=== PATIENT | male | born 1955 | race Caucasian/White ===

== ENCOUNTER 2020-09-22 02:05 | Outpatient (CLI) | payer MEDICARE, SELFPAY ==
[2020-09-22 14:10] LABS: TSH 3.59 uIU/mL (0.36-3.74)
== END 2020-09-22 02:25 ==
DX: E03.9 Hypothyroidism, unspecified (principal)
CPT/HCPCS: 36415; 84443

== ENCOUNTER 2021-03-30 11:47 | Outpatient (CLI) | payer MEDICARE, SELFPAY ==
--- OUTSIDE RECORDS SUMMARY | 2021-03-30 11:52 | XMS_ITS | Continuity of Care Document ---
:1955 Author Organization [facility] Address [address] [place] [address]- Care Team Providers Name Role Phone TOLL Primary Care Physician Encounter BVT Date(s): 11/13/20 - 11/17/[address] [address]- Encounter Diagnosis Acute diastolic CHF (congestive heart failure) (Discharge Diagnosis) - 11/14/20 COPD (chronic obstructive pulmonary disease) (Discharge Diagnosis) - 11/13/20 Diaphragmatic paresis. left (Discharge Diagnosis) - 11/13/20 Hypothyroidism (Discharge Diagnosis) - 11/13/20 Respiratory failure with hypoxia (Discharge Diagnosis) - 11/14/20 Obesity (Discharge Diagnosis) - 11/14/20 Alcohol use (Discharge Diagnosis) - 11/14/20 Pulmonary artery hypertension (Discharge Diagnosis) - 11/15/20 Discharge Disposition: Home with Home Health Care Attending Physician: KERRY GIRON Admitting Physician: KERRY GIRON Allergies, Adverse Reactions, Alerts No Known Allergies Assessment and Plan Extracted from: Title: Discharge Note Author: DELORES BEY Date: 11/17/20 Discharge Plan 1.??Acute diastolic CHF (congestive hear t failure)??I50.31 Diuresed during admission. Discharged on oral furosemide 20 mg yazmin y, and??oral potassium chloride 10 mEq daily. Referral to cardiology at[facility]??sent. Dose of furosemide may need to be adjust ed??based on his fluid status??in the outpatient setting. Recommend basic metabolic panel in 1 wee k??to reassess renal function and electrolytes, which are normal at discharge. ?? 2.??Pulmonary artery hypertension??I27. 21 ??Suspected diagnosis based on enlarged pulmonary arteries seen on??CT PE protocol,??and mild dilation of RV on echocardiogram. No evidence of pulmonary emboli. May be related to underlying COPD? Order for PFTs and referral to pulmonolo gy at [facility]??sent. Patient??requiring 2 L of oxygen with ex ertion at time of discharge.?? No oxygen requirement at rest.?? Home oxygen arranged. ?? 3.??Respiratory failure with hypoxia??J 96.91 4.??COPD (chronic obstructive pulmonary disease)??J44.9 ??Needs PFTs,??order??to [facility] sent. Started on Anoro Ellipta??during admissi on, prescription sent to his pharmacy. ?? 5.??Diaphragmatic paresis. left??J98.6 ??Longstanding per patient,??but may be contributing to??hypoxia with exertion? 6.??Hypothyroidism??E03.9 7.??Obesity??E66.9 8.??Alcohol use??Z72.89 ??Counseled to reduce use. ??No withdraw al during admission. ?? Orders: 2 LPM with exertion, 2 LPM with exertion , See Instructions, No oxygen needed while at rest., # 1 EA, 0 Refill(s), other reason (Rx), Instructions Replace Required Details, Supply furosemide 20 mg oral tablet, 20 mg = 1 tab(s), Oral, Daily, For heart failure, # 30 tab(s), 0 Refill(s), Pharmacy: [facility], 1 tab(s) Oral Daily,Instr:For heart failure potassium chloride 10 mEq oral tablet, extended release, 10 mEq = 1 tab(s), Oral, Daily, # 30 tab(s), 0 Refill(s), Pharmacy: [facility], 1 tab(s) Oral Daily Anoro Ellipta 62.5 mcg-25 mcg/inh inhal ation powder, 1 puff(s), INH, Daily, For COPD, # 1 EA, 0 Refill(s), Pharmacy: [facility], 1 puff(s) INH Daily,Instr:For COPD Discharge, 11/17/20 14:42:00 EDT, Home Health Discharge Activity, 11/17/20 14:42:00 E DT, As tolerated Discharge Activity, 11/17/20 14:42:00 E DT, If your weight increases by more than 2lb in 24 hours, take an extra dose of furosemide. If your weight increases again despite this, call Dr. Baker for advice. Discharge Activity, 11/17/20 14:42:00 E DT, Heart failure can cause fluid to build up in your body. To prevent this, continue taking the medication furosemide daily. Discharge Activity, 11/17/20 14:42:00 E DT, You were diagnosed with diastolic congestive heart failure. This means your heart muscle more stiff than it should be. The pumping strength of your heart is normal. Discharge Activity, 11/17/20 14:42:00 E DT, Discontinue alcohol use Discharge Activity, 11/17/20 14:42:00 E DT, At this time you need to wear oxygen, 2 liters/min by nasal cannula, when you walk or exert yourself. You don't need oxygen when you are still or resting. Discharge Activity, 11/17/20 14:42:00 E DT, I have referred you to cardiology at [facility]. I also referred you to pulmonology, and for pulmonary function tests, because you probably have high pressure in your pulmonary arteries. Discharge Diet., 11/17/20 14:42:00 EDT, Prudent AHA Diet Discontinue IV, 11/17/20 14:42:00 EDT, prior to discharge home SARS-CoV-2 (COVID-19) PCR (BD MAX), Jonathon opharyngeal Swab, Routine collect, 11/17/20 10:38:00 EDT, Stop date 11/17/20 10:43:00 EDT, Nurse collect, No, No, No, No, No, Not All Diagnoses This Visit Acute diastolic CHF (congestive heart fa ilure) Pulmonary artery hypertension Respiratory failure with hypoxia COPD (chronic obstructive pulmonary dis ease) Diaphragmatic paresis. left Hypothyroidism Obesity Alcohol use Patient Discharge Condition Stable, improved Discharge Disposition Home with??home health Outpatient referrals to cardiology??and pulmonology??sent Referral for outpatient PFTs sent Patient Education Heart Failure Medicines Heart Failure Exacerbation Pulmonary Hypertension How the Heart Works Heart Failure Eating Plan Form - Daily Weight Record Living With Heart Failure Follow Up With When Contact Information NAM Wood 11/21/2020 10:30 AM EDT [facility] [address] [id number] - [facility] (1) Additional Instructions: This is your fo llow up appointment after hospitalization @ the PCP office Pulmonology/[facility]/[place] Additional Instructions: Office will stephanie wood to schedule follow up. phone: ??[phone] [facility] [place] Additional Instructions: Service to call you and schedule in home appointment # [phone] Cardiology/[facility]/[place] Additional Instructions: Office will stephanie wood to schedule follow up # [phone] Functional Status 11/17/20 History of Fall in Last 3 Months [place] No Mobility Jaspal Slightly limited 11/17/20 Ambulatory Devices None 11/13/20 Level of Assistance - Self Care-Mobility No change fro m baseline Bathing ADL Index Independent (2) Dressing ADL Index Independent (2) Toileting ADL Index Independent (2) Transferring Bed or Chair ADL Index Independent (2) Continence ADL Index Independent (2) COVID-19 Screening None Medications 2 LPM with exertion 2 LPM with exertion, See Instructions, No oxygen needed while at rest., # 1 EA, 0 Refill(s), other reason (Rx), Instructions Replace Required Details, Supply Start Date: 11/17/20 Status: OrderedAlbuterol (Eqv-ProAir HFA) 90 mcg/inh inhalation aerosol 2 puff(s), INH, q4hr, PRN PRN wheezing Start Date: 11/13/20 Status: OrderedAllegra Allergy 180 mg, Oral, Daily, PRN PRN allergy symptoms, 0 Refill(s) Start Date: 01/30/17 Status: OrderedAnoro Ellipta 62.5 mcg-25 mcg/inh inhalation powder 1 puff(s), INH, Daily, For COPD, # 1 EA, 0 Refill(s), Pharmacy: [facility], 1 puff(s) INH Daily,Instr:For COPD Start Date: 11/17/20 Status: Orderedfurosemide 20 mg oral tablet 20 mg = 1 tab(s), Oral, Daily, For heart failure, # 30 tab(s), 0 Refill(s), Pharmacy: [facility], 1 tab(s) Oral Daily,Instr:For heart failure Start Date: 11/17/20 Status: Orderedibuprofen 600 mg oral tablet 600 mg = 1 tab(s), Oral, q6hr, PRN PRN Pain, 0 Refill(s) Start Date: 01/30/17 Status: Orderedlevothyroxine 25 mcg (0.025 mg) oral capsule 25 mcg = 1 cap(s), Oral, Daily Start Date: 11/13/20 Status: Orderedpotassium chloride 10 mEq oral tablet, extended release 10 mEq = 1 tab(s), Oral, Daily, # 30 tab(s), 0 Refill(s), Pharmacy: [facility], 1 tab(s)Oral Daily Start Date: 11/17/20 Status: Ordered Mental Status 11/17/20 Sensory Perception Jaspal No impairment 11/17/20 Level of Consciousness Alert Problem List Condition Effective Dates Status Health Status Informant Asthma(Confirmed) Active Bilateral inguinal hernia(Confirmed) Active COPD (chronic obstructive pulmonary Active disease)(Confirmed) Diaphragmatic paresis. left(Confirmed) Active Hx of depression(Confirmed) Active Hypothyroidism(Confirmed) Active Right knee pain(Confirmed) Active Marijuana use, episodic(Confirmed) Active Class 2 obesity in adult(Confirmed) Active Primary localized osteoarthritis of Active right knee(Confirmed) Recurrent left inguinal Active hernia(Confirmed) Seasonal allergies(Confirmed) Active Vitamin D insufficiency(Confirmed) Active Procedures Procedure Date Related Diagnosis Body Site Status Appendectomy 1964 Completed Repair of left inguinal hernia Completed Results Laboratory List Name Date Basic Metabolic Panel Standard (CP7 Standard) 11/17/20 Magnesium Level 11/17/20 Basic Metabolic Panel Standard (CP7 Standard) 11/16/20 Glucose POC 11/15/20 Automated Differential Standard 11/15/20 Basic Metabolic Panel Standard (CP7 Standard) 11/15/20 CBC w/Diff Standard 11/15/20 Automated Differential Standard 11/14/20 CBC w/Diff Standard 11/14/20 Comprehensive Metabolic Panel Standard (Chemistry Pane l Standard) 11/14/20 Pro-BNP (BNP (proBNP)) 11/14/20 Troponin-T 11/14/20 Most recent to oldest 1 2 3 [Reference Range]: NRBC Auto Pct [0.00-0.20 %] 0.00 % 0.00 % (11/15/20 6:18 AM) (11/14/20 7:14 AM) Creatinine [0.70-1.20 0.63 mg/dL 0.67 mg/dL 0.75 mg/dL mg/dL] *LOW* *LOW* (11/15/20 6:18 AM ) (11/17/20 6:25 AM) (11/16/20 6:30 AM) AGAP [10.0-18.0 mmol/L] 8.6 mmol/L 7.7 mmol/L 10.7 mmo l/L *LOW* *LOW* (11/15/20 6:18 AM ) (11/17/20 6:25 AM) (11/16/20 6:30 AM) Glucose Lvl [70-100 mg/dL] 92 mg/dL 95 mg/dL 90 mg /dL (11/17/20 6:25 AM) (11/16/20 6:30 AM) (11/15/20 6:1 8 AM) Hct [40.1-51.0 %] 53.1 % 52.7 % *HI* *HI* (11/15/20:18 AM) (11/14/20 7:14 AM) Hgb [13.7-17.5 gm/dL] 16.5 gm/dL 16.1 gm/dL (11/15/20:18 AM) (11/14/20 7:14 AM) Lymph Auto [15.0-45.0 %] 11.1 % 14.9 % *LOW* *LOW* (11/15/20:18 AM) (11/14/20 7:14 AM) Magnesium [1.60-2.60 mg/dL] 1.70 mg/dL (11/17/20 6:25 AM) MCH [25.6-32.2 pg] 31.5 pg 31.1 pg (11/15/20 6:18 AM) (11/14/20 7:14 AM) MCHC [32.3-36.5 gm/dL] 31.1 gm/dL 30.6 gm/dL *LOW* *LOW* (11/15/20:18 AM) (11/14/20 7:14 AM) MCV [79.0-92.2 fL] 101.5 fL 101.7 fL *HI* *HI* (11/15/20 6:18 AM) (11/14/20 7:14 AM) Mclean Auto [4.0-14.0 %] 13.9 % 12.6 % (11/15/20 6:18 AM) (11/14/20 7:14 AM) MPV [9.4-12.4 fL] 9.6 fL 9.8 fL (11/15/20 6:18 AM) (11/14/20 7:14 AM) Neutro Auto [50.0-75.0 %] 71.9 % 70.6 % (11/15/20 6:18 AM) (11/14/20 7:14 AM) Osmolality [268.0-291.0 267.2 mOsm/kg 268.2 mOsm/kg 276.0 mO sm/kg mOsm/kg] *LOW* (11/16/20 6:30 AM) (11/15/20 6:18 AM) (11/17/20 6:25 AM) Platelet [150-400 160 x10(3)/uL 161 x10(3)/uL x10(3)/uL] (11/15/20 6:18 AM) (11/14/20 7:14 AM) RBC [4.63-6.08 x10(6)/uL] 5.23 x10(6)/uL 5.18 x10(6)/uL (11/15/20 6:18 AM) (11/14/20 7:14 AM) Sodium Lvl [136-145 mmol/L] 133 mmol/L 134 mmol/L 138 mmol/L *LOW* *LOW* (11/15/20 6:18 AM ) (11/17/20 6:25 AM) (11/16/20 6:30 AM) Total Protein [6.6-8.7 7.0 gm/dL gm/dL] (11/14/20 7:14 AM) Albumin Lvl [3.50-5.20 3.60 gm/dL gm/dL] (11/14/20 7:14 AM) Alk Phos [40-130 IntUnit/L] 81 IntUnit/L (11/14/20 7:14 AM) ALT [0-41 IntUnit/L] 24 IntUnit/L (11/14/20 7:14 AM) AST [0-40 IntUnit/L] 27 IntUnit/L (11/14/20 7:14 AM) Basophil Auto [0.0-2.0 %] 1.1 % 0.9 % (11/15/20 6:18 AM) (11/14/20 7:14 AM) Bili Total [0.0-1.3 mg/dL] 1.0 mg/dL (11/14/20 7:14 AM) CO2 [22-29 mmol/L] 44 mmol/L 1 44 mmol/L 2 43 mmol/L 3 *CRIT* *CRIT* *CRIT* (11/17/20 6:25 AM) (11/16/20 6:30 AM) (11/15/20 6:1 8 AM) Eos Auto [0.0-8.0 %] 1.5 % 0.8 % (11/15/20 6:18 AM) (11/14/20 7:14 AM) WBC [4.2-9.1 x10(3)/uL] 6.1 x10(3)/uL 5.3 x10(3)/uL (11/15/20 6:18 AM) (11/14/20 7:14 AM) BUN [6-23 mg/dL] 16 mg/dL 13 mg/dL 15 mg/dL (11/17/20 6:25 AM) (11/16/20 6:30 AM) (11/15/20 6:1 8 AM) Calcium Lvl [8.6-10.2 8.8 mg/dL 8.5 mg/dL 8.9 mg/dL mg/dL] (11/17/20 6:25 AM) *LOW* (11/15/20 6:18 AM) (11/16/20 6:30 AM) Chloride [98-107 mmol/L] 84 mmol/L 86 mmol/L 89 mmol /L *LOW* *LOW* *LOW* (11/17/20 6:25 AM) (11/16/20 6:30 AM) (11/15/20 6:1 8 AM) Potassium Lvl [3.5-5.1 3.6 mmol/L 3.7 mmol/L 4.7 mmol/ L mmol/L] (11/17/20 6:25 AM) (11/16/20 6:30 AM) (11/15/20 6:1 8 AM) Troponin-T [0.000-0.029 <0.010 ng/mL ng/mL] (11/14/20 7:14 AM) Lymph Absolute [1.30-3.60 0.68 x10(3)/uL 0.79 x10(3)/uL x10(3)/uL] *LOW* *LOW* (11/15/20 6:18 AM) (11/14/20 7:14 AM) Mclean Absolute [0.30-0.80 0.85 x10(3)/uL 0.67 x10(3)/uL x10(3)/uL] *HI* (11/14/20 7:14 AM) (11/15/20 6:18 AM) Eos Absolute [0.04-0.36 0.09 x10(3)/uL 0.04 x10(3)/uL x10(3)/uL] (11/15/20 6:18 AM) (11/14/20 7:14 AM) NRBC Absolute [0.00-0.01 0.00 x10(3)/uL 0.00 x10(3)/uL x10(3)/uL] (11/15/20 6:18 AM) (11/14/20 7:14 AM) Neutro Absolute [1.78-5.38 4.40 x10(3)/uL 3.75 x10(3)/uL x10(3)/uL] (11/15/20 6:18 AM) (11/14/20 7:14 AM) RDW-CV [11.6-14.4 %] 12.5 % 12.8 % (11/15/20 6:18 AM) (11/14/20 7:14 AM) Glucose POC [70-100] 102 *HI* (11/15/20 1:27 PM) Pro-BNP [0.0-125.0 pg/mL] 1065.0 pg/mL *HI* (11/14/20 7:14 AM) GFR NonAfrican Gibraltarian 127 mL/min/1.73 m2 119 mL/min/1.73 m2 10 4 mL/min/1.73 m2 [>=60 mL/min/1.73 m2] (11/17/20 6:25 AM) (11/16/20 6:30 AM) ( 6:18 AM) Immature Gran % [0.00-2.30 0.50 % 0.20 % %] (11/15/20 6:18 AM) (11/14/20 7:14 AM) Immature Gran Absolute 0.03 x10(3)/uL 0.01 x10(3)/uL *NA* *NA* (11/15/20 6:18 AM) (11/14/20 7:14 AM) Basophil Absolute 0.07 x10(3)/uL 0.05 x10(3)/uL [0.00-0.10 x10(3)/uL] (11/15/20 6:18 AM) (11/14/20 7:14 AM) 1Result Comment: Critical result notified/readback to Alma Delia Lucas at PCU by Yasmeen Benitez at 11/17/2020 07:38:27 EDT.2Result Comment: Critical result notified/readback to Latoya Petit at 11/16/2020 07:43:44 EDT by [email or web address] Result Comment: Critical result notified/readback to Latoya Petit at U by Steffi at 11/15/2020 07:39Radiology Reports Exam Date Time Procedure Performing Provider Status 11/14/20 5:[address] PE Protocol Yasmeen Delaney; Auth (Verified) Notes:(CT PE Protocol) Reason For Exam: New hypoxia, Right heart strain, ro PE, ho COPDCT PE Protocol EXAMINATION: CT PE Protocol CLINICAL HISTORY: New hypoxia, Right heart strain, ro PE, ho COPD TECHNIQUE: Helical CT angiogram of the chest was performed after intravenous contrast administration of 95cc of Omnipaque 350. Thin-section reconstructions as well as coronal and sagittal MIP reformatted images were generated to aid in evaluation. COMPARISON: Chest radiograph 11/13/2020 0947 hours FINDINGS: Pulmonary arteries: Limited study due to decreased opacification of the pulmonary arteries (main pulmonary artery measures 215 Hounsfield units) secondary to contrast bolus timing. The main pulmonary artery is enlarged and measures 45 mm in diameter. No proximal pulmonary artery intraluminal filling defects. Other cardiovascular structures: Normal heart size. No aneurysm or stenosis. Coronary calcifications are present. Lungs and airways: There is compressive atelectasis of the left lower lobe secondary to marked elevation of the left hemidiaphragm and marked kyphotic curvature of the thoracic spine. Subtle air bronchograms are evident.1 Pleura and pericardium: No significant findings. Mediastinum and hilar structures: No lymphadenopathy or pneumomediastinum. Limited views of the upper abdomen: There is marked elevation of the left hemidiaphragm. The GE junction is normally positioned, however, the stomach takes an abrupt cephalad turn and is largely located within the left hemithorax. Additionally, loops of small and large bowel as well as the spleen and pancreas are located within the left hemithorax. No disruption of the diaphragm is identified to suggest hernia. Skeletal structures: Marked kyphosis of the visualized thoracic spine with bridging syndesmophytes along the anterior vertebral column, as well as calcification of the supraspinous ligament5. No fracture or suspicious osseous lesion. IMPRESSION: 1. Limited study due to limited opacification of the pulmonary arteries secondary to contrast bolus timing. 2. No large proximal pulmonary artery filling defects. 3. Increased diameter of the main pulmonary artery, which suggests pulmonary hypertension. 4. Marked elevation of the left hemidiaphragm, age indeterminant, possibly indicating phrenic nerve or diaphragmatic injury. Comparison with prior imaging is recommended. 5. Left basilar atelectasis, with subtle air bronchograms. Correlate for likelihood of infectious consolidation. Preliminary report signed by a [facility] Server Systems Administrator or Fellow: Allen Sung at 11/14/2020 5:32 PM I have personally reviewed the image(s) and the resident's interpretation and agree with the findings, Alvin Retana MD at 11/14/2020 5:54 PM Thank you for letting us participate in the care of this patient. For questions regarding this report, please contact the number below. Final Dictated: 11/14/2020 5:54 pm ALVIN RETANA Signed (Electronic Signature): 11/14/2020 5:54 pm Signed by: ALVIN RETANA Exam Date Time Procedure Performing Provider Status 11/14/20 8:50 AM US Echocardiogram Complete Sergio Markham (Verified) Notes:(US Echocardiogram Complete) Reason For Exam: chfUS Echocardiogram Complete [address], [address] (main) Transthoracic Echo Report Patient name: EDMOND FUENTES P : 1955 Age: 65Y Weight: 262.4 lb Height: 67.7 in BSA: 2.38 m2 [facility]#/Seq#: [id number] Inpt/Outpt: Inpatient Equipment: EPIQ CVx Referred by: EVITA ANDINO On Car Supervisor: Jarad Markham Interpreting physician: Khanh Rayo MD Examination date: 11/14/2020 Study quality:Technically difficult Comments: --------- Technical limitations - body habitus. ___2 cc of definity mixture was administered to enhance endocardial border definition. Echo Dimensions Ao Root Margie (2D): 0 cm IVS(D) (2D): 1.4 cm LVPW(D) (2D): 1.4 cm LV(D) (2D): 3.8 cm LV(S) (2D): 2.5 cm LA Vol Idx (2D): 47.2 ml/m2 Asc Ao Margie (2D): 4.2 cm LVOT (2D): 2.2 cm EF (2D): 71 % FS (2D): 34.2 % Diastology Findings -------- Left Ventricle There is overall normal LV systolic function.There are no wall motion abnormalities. The estimated LV ejection fraction is 70 %. LV chamber size is normal. There is mild concentric LV hypertrophy. Right Ventricle RV size is mildly dilated. The RV systolic function is normal. Left Atrium Left Atrium chamber is severely dilated. Right Atrium Right Atrium chamber is severely dilated. Aortic Valve Aortic valve is not well visualized. There is no aortic regurgitation. There is no aortic valve stenosis. Mitral Valve Mitral valve leaflets appear normal with normal excursion. There is mild mitral valve prolapse, anterior and posterior leaflets. There is moderate calcification of mitral valve posterior leaflet. There is no mitral regurgitation. There is no mitral stenosis. Tricuspid Valve Tricuspid valve is not well visualized. The estimated PA systolic pressure was not measured in the absence of an adequate TR jet. Pulmonary Valve Pulmonic valve is not well visualized. Pericardium The pericardium is normal. Aorta The ascending aorta is moderately dilated. Ascending Aortic Diameter: 4.2 cm. Impressions * There is overall normal LV systolic function. * There are no wall motion abnormalities. * The estimated LV ejection fraction is 70 %. * There is mild concentric LV hypertrophy. * RV size is mildly dilated. * Left Atrium chamber is severely dilated. * Right Atrium chamber is severely dilated. * The estimated PA systolic pressure was not measured in the absence of an adequate TR jet. * The ascending aorta is moderately dilated. * Ascending Aortic Diameter: 4.2 cm. * No significant valvular disease. * Technically difficult study. Electronically signed by: Khanh Rayo MD 11/14/2020 11:24 AM Final Dictated: 11/14/2020 11:24 am Khanh Rayo Signed (Electronic Signature): 11/14/2020 11:24 am Signed by: Khanh Rayo Technologist: Luly Markham Vital Signs Most recent to oldest 1 2 3 [Reference Range]: Temperature Temporal 36.3 DegC 36.6 DegC 37.1 DegC [36.3-37.8 DegC] (11/17/20 3:02 PM) (11/17/20 7:56 AM) (11/16/20 11 :22 PM) Temperature Temporal (DegF) 97.34 DegF 98.78 DegF 97.7 DegF (11/17/20 3:02 PM) (11/16/20 11:22 PM) (11/15/20 11 :33 PM) Peripheral Pulse Rate 92 bpm 100 bpm 99 bpm [60-100 bpm] (11/17/20 3:02 PM) (11/17/20 10:36 AM) (11/17/20 7: 56 AM) Heart Rate Monitored [60-100 91 bpm bpm] (11/16/20 8:09 AM) Respiratory Rate [14-20 18 br/min 18 br/min 22 br/mi n br/min] (11/17/20 3:02 PM) (11/17/20 10:36 AM) *HI* (11/17/20 7:56 AM ) Blood Pressure [90-140/60-90 126/70 mmHg 127/87 mmHg 97/ 69 mmHg mmHg] (11/17/20 3:02 PM) (11/17/20 7:56 AM) (11/17/20 12: 20 AM) Mean Arterial Pressure, Cuff 100 mmHg 78 mmHg 63 mmHg [65-100 mmHg] (11/17/20 7:56 AM) (11/17/20 12:20 AM) *LOW* (11/16/20 11:22 P M) Mean Arterial Pressure 104 mmHg 103 mmHg 102 mmHg Cuff-Monitor (11/14/20 3:45 PM) (11/14/20 3:32 AM) (11/13/20 11: 41 PM) BP Site Left arm Left arm Right arm (11/17/20 3:02 PM) (11/17/20 7:56 AM) (11/17/20 12: 20 AM) Patient Position BP Sitting Supine Supine (11/17/20 3:02 PM) (11/17/20 12:20 AM) (11/16/20 11 :22 PM) FIO2 21 % (11/13/20 10:16 PM) SpO2 [92-100 %] 92 % 91 % 93 % (11/17/20 3:02 PM) *LOW* (11/17/20 10:09 AM) (11/17/20 10:36 AM) Oxygen Activity Ongoing Initiate Ongoing (11/17/20 10:09 AM) (11/17/20 12:20 AM) (11/16/20 3 :22 PM) Height 172.720 cm (11/13/20 8:10 PM) Height/Length Dosing 172.720 cm (11/13/20 8:10 PM) Weight 114.6 kg 116.1 kg 119.0 kg (11/16/20 5:25 AM) (11/15/20 1:41 PM) (11/14/20 3:3 2 AM) Weight Measured (lbs) 255.42 lb 261.8 lb (11/15/20 1:41 PM) (11/14/20 3:32 AM) Weight Dosing 118.100 kg (11/13/20 8:10 PM) Scale Type Bed scale (11/13/20 8:10 PM) Body Mass Index 39.590 kg/m2 (11/13/20 8:10 PM) Social History Social History Type Response Smoking Status Former smoker, quit more odalys n 30 days ago; Tobacco use per day: quit 1987; entered on: 11/13/20 Sex Hospital Discharge Instructions Patient Euvgqydxv58/19/2021 16:08:30Heart Failure MedicinesHeart Failure Medicines Heart failure is a condition in which the heart cannot pump enough blood through the body. This can cause symptoms such as shortness of breath, fatigue, and confusion. There are two types of heart failure: ??? Heart failure with reduced ejection fraction. In this type, the heart muscle is weak. ??? Heart failure with preserved ejection fraction. In this type, the heart muscle does not fill with blood properly and may be stiff. There is no cure for heart failure. However, being treated with medicines and following your health care provider's instructions about a healthy lifestyle can help you stay active, avoid problems, and live longer. Talk to your health care provider about all medicines that you are taking, how often you should takethem, and what possible problems (side effects) they may cause. Talk with your health care provider if you have difficulty affording your medicines. What are some common medicines for heart failure? The medicines that are prescribed for you will depend on your symptoms, the type of heart failure you have, and the cause of your heart failure. In some cases, you may need to take more than one medicine. You will be prescribed the following medicines according to your type of heart failure: Heart failure with reduced ejection fraction ??? Beta-blockers. ??? Angiotensin-converting enzyme (LEE) inhibitors. ??? Angiotensin II receptor blockers (ARBs). ??? Angiotensin receptor neprilysin inhibitors (ARNIs). ??? Aldosterone antagonists. ??? Diuretics. ??? Digoxin. ??? Nitrates. Heart failure with preserved ejection fraction ??? Medicines to control blood pressure, including: ??? Beta-blockers. ??? Angiotensin-converting enzyme (LEE) inhibitors. ??? Angiotensin II receptor blockers (ARBs). ??? Diuretics. ??? Aldosterone antagonists. What should I know about beta-blockers? These medicines lower your blood pressure and slow your heart rate. This helps to lessen your heart's workload. ??? They can help to relieve chest pain (angina). ??? They can help to improve your heart's ability to pump. ??? They may cause asthma attacks and shortness of breath. ??? Because these medicines slow your heart rate, it is important not to overwork yourself while exercising. Talk to your health care provider about what your target heart rate should be while you exercise. ??? These medicines can hide the symptoms of low blood sugar (glucose), which is also called hypoglycemia. If you have diabetes, make sure to check your blood glucose carefully. If you have hypoglycemia, talk to your health care provider about adjusting your medicines. ??? Beta-blockers may make you feel dizzy or light-headed at first. Do not drive or use heavy machinery when you first start these medicines. Ask your health care provider when it is safe for you to drive. What should I know about LEE inhibitors or ARBs? These medicines help to widen arteries and veins. This action lowers your blood pressure and lessens the strain on your heart, making it easier for your heart to pump. ??? They can help to lessen the symptoms of heart failure. ??? ARBs are often used if a person cannot take LEE inhibitors. ??? LEE inhibitors may cause a dry cough. ??? In rare cases, LEE inhibitors and ARBs can cause swelling of the tongue or lips, other swelling,taste problems, and skin rashes. If these symptoms occur, stop taking the medicines and contact yourhealth care provider. ??? Do not take LEE inhibitors if you are or may become . These medicines can causehealth problems in an unborn baby. ??? These medicines may cause dizziness. You may need regular checkups and blood tests to monitor how they are working. What should I know about ARNIs? These medicines are a combination of an ARB and another medicine. They lower your blood pressure. ??? Side effects may include dry cough, dizziness, low blood pressure, and kidney problems. ??? Do not take ARNIs if you are already taking LEE inhibitors or ARBs. ??? You may notice increased urination when taking these medicines. ??? ARNIs can raise the amount of potassium in the blood. Your potassium levels will be monitored regularly by your health care provider. What should I know about aldosterone antagonists? They help the body to remove excess sodium through urination. This helps to lessen the amount ofblood that the heart needs to pump. ??? They can also help to lower blood pressure and improve the heart's ability to pump blood. ??? They may cause dizziness, diarrhea, coughing, or flu-like symptoms. ??? They should not be used if you have type 2 diabetes. ??? They can raise the amount of potassium in the blood. Your potassium levels will be monitored regularly by your health care provider. ??? These medicines can make men's breasts large and tender. What should I know about diuretics? Diuretics are medicines that help the body get rid of excess fluid through urination. They can also help lessen your heart's workload. ??? They help to lessen fluid buildup in the lungs, ankles, and feet. ??? They help to lower your blood pressure. ??? They can worsen problems with controlling urination (urinary incontinence). ??? They may cause dizziness, headaches, muscle cramps, and an upset stomach. ??? They can cause weak muscles, dry mouth, or confusion. It is important to drink plenty of fluids while taking these medicines, especially while exercising or on hot days. What should I know about digoxin? Digoxin helps the heart pump more blood efficiently. It also lowers your heart rate. ??? It can help ease heart failure symptoms and may be used if other medicines do not work. ??? It can also help with irregular heartbeat (arrhythmia). ??? It may cause stomach problems, fatigue, headache, drowsiness, or vision problems. What should I know about nitrates? Nitrates relax the blood vessels and increase oxygen and blood supply to the heart. They also lower the blood pressure. ??? They are usually taken to lessen chest pain. ??? They may cause headaches, flushing, or irregular heartbeat. Summary ??? A healthy lifestyle and treatment with medicine will relieve symptoms of heart failure. ??? In some cases, you may need to take more than one medicine. ??? It is important to talk to your health care provider about how often you should take your medicines. Do not skip a dose or change your dosage. ??? Talk to your health care provider about possible side effects of these medicines. This information is not intended to replace advice given to you by your health care provider. Make sure you discuss any questions you have with your health care provider. Document Released: 01/02/2018 Document Revised: 09/02/2018 Document Reviewed: 01/02/2018 [employer] Patient Education ?? 2020 [employer]. 11/17/2020 16:08:30Heart Failure ExacerbationHeart Failure Exacerbation Heart failure is a condition in which the heart does not fill up with enough blood, and therefore does not pump enough blood and oxygen to the body. When this happens, parts of the body do not get the blood and oxygen they need to function properly. This can cause symptoms such as breathing problems, fatigue, swelling, and confusion. Heart failure exacerbation refers to heart failure symptoms that get worse. The symptoms may get worse suddenly or develop slowly over time. Heart failure exacerbation is a serious medical problem thatshould be treated right away. What are the causes? A heart failure exacerbation can be triggered by: ??? Not taking your heart failure medicines correctly. ??? Infections. ??? Eating an unhealthy diet or a diet that is high in salt (sodium). ??? Drinking too much fluid. ??? Drinking alcohol. ??? Taking illegal drugs, such as cocaine or methamphetamine. ??? Not exercising. Other causes include: ??? Other heart conditions such as an irregular heartbeat (arrhythmia). ??? Anemia. ??? Other medical problems, such as kidney failure. Sometimes the cause of the exacerbation is not known. What are the signs or symptoms? When heart failure symptoms suddenly or slowly get worse, this may be a sign of heart failure exacerbation. Symptoms of heart failure include: ??? Breathing problems or shortness of breath. ??? Chronic coughing or wheezing. ??? Fatigue. ??? Nausea or lack of appetite. ??? Feeling light-headed. ??? Confusion or memory loss. ??? Increased heart rate or irregular heartbeat. ??? Buildup of fluid in the legs, ankles, feet, or abdomen. ??? Difficulty breathing when lying down. How is this diagnosed? This condition is diagnosed based on: ??? Your symptoms and medical history. ??? A physical exam. You may also have tests, including: ??? Electrocardiogram (ECG). This test measures the electrical activity of your heart. ??? Echocardiogram. This test uses sound waves to take a picture of your heart to see how well it works. ??? Blood tests. ??? Imaging tests, such as: ??? Chest X-ray. ??? MRI. ??? Ultrasound. ??? Stress test. This test examines how well your heart functions when you exercise. Your heart is monitored while you exercise on a treadmill or exercise bike. If you cannot exercise, medicines may beused to increase your heartbeat in place of exercise. ??? Cardiac catheterization. During this test, a thin, flexible tube (catheter) is inserted into a blood vessel and threaded up to your heart. This test allows your health care provider to check the arteries that lead to your heart (coronary arteries). ??? Right heart catheterization. During this test, the pressure in your heart is measured. How is this treated? This condition may be treated by: ??? Adjusting your heart medicines. ??? Maintaining a healthy lifestyle. This includes: ??? Eating a heart-healthy diet that is low in sodium. ??? Not using any products that contain nicotine or tobacco, such as cigarettes and e-cigarettes. ??? Regular exercise. ??? Monitoring your fluid intake. ??? Monitoring your weight and reporting changes to your health care provider. ??? Treating sleep apnea, if you have this condition. ??? Surgery. This may include: ??? Implanting a device that helps both sides of your heart contract at the same time (cardiac resynchronization therapy device). This can help with heart function and relieve heart failure symptoms. ??? Implanting a device that can correct heart rhythm problems (implantable cardioverter defibrillator). ??? Connecting a device to your heart to help it pump blood (ventricular assist device). ??? Heart transplant. Follow these instructions at home: Medicines ??? Take [id number] and prescription medicines only as told by your health care provider. ??? Do not stop taking your medicines or change the amount you take. If you are having problems or side effects from your medicines, talk to your health care provider. ??? If you are having difficulty paying for your medicines, contact a social media senior associate or your clinic. There are many programs to assist with medicine costs. ??? Talk to your health care provider before starting any new medicines or supplements. ??? Make sure your health care provider and pharmacist have a list of all the medicines you are taking. Eating and drinking ??? Avoid drinking alcohol. ??? Eat a heart-healthy diet as told by your health care provider. This includes: ??? Plenty of fruits and vegetables. ??? Lean proteins. ??? Low-fat dairy. ??? Whole grains. ??? Foods that are low in sodium. Activity ??? Exercise regularly as told by your health care provider. Balance exercise with rest. ??? Ask your health care provider what activities are safe for you. This includes sexual activity, exercise, and daily tasks at home or work. Lifestyle ??? Do not use any products that contain nicotine or tobacco, such as cigarettes and e-cigarettes. If you need help quitting, ask your health care provider. ??? Maintain a healthy weight. Ask your health care provider what weight is healthy for you. ??? Consider joining a patient support group. This can help with emotional problems you may have, such as stress and anxiety. General instructions ??? Talk to your health care provider about flu and pneumonia vaccines. ??? Keep a list of medicines that you are taking. This may help in emergency situations. ??? Keep all follow-up visits as told by your health care provider. This is important. Contact a health care provider if: ??? You have questions about your medicines or you miss a dose. ??? You feel anxious, depressed, or stressed. ??? You have swelling in your feet, ankles, legs, or abdomen. ??? You have shortness of breath during activity or exercise. ??? You have a cough. ??? You have a fever. ??? You have trouble sleeping. ??? You gain 2???3 lb (1???1.4 kg) in 24 hours or 5 lb (2.3 kg) in a week. Get help right away if: ??? You have chest pain. ??? You have shortness of breath while resting. ??? You have severe fatigue. ??? You are confused. ??? You have severe dizziness. ??? You have a rapid or irregular heartbeat. ??? You have nausea or you vomit. ??? You have a cough that is worse at night or you cannot lie flat. ??? You have a cough that will not go away. ??? You have severe depression or sadness. Summary ??? When heart failure symptoms get worse, it is called heart failure exacerbation. ??? Common causes of this condition include taking medicines incorrectly, infections, and drinking alcohol. ??? This condition may be treated by adjusting medicines, maintaining a healthy lifestyle, or surgery. ??? Do not stop taking your medicines or change the amount you take. If you are having problems or side effects from your medicines, talk to your health care provider. This information is not intended to replace advice given to you by your health care provider. Make sure you discuss any questions you have with your health care provider. Document Released: 12/30/2017 Document Revised: 07/31/2018 Document Reviewed: 12/30/2017 [employer] Patient Education ?? 2020 [employer]. 11/17/2020 16:08:30Pulmonary HypertensionPulmonary Hypertension Pulmonary hypertension is a long-term (chronic) condition in which there is high blood pressure in the arteries in the lungs (pulmonary arteries). This condition occurs when pulmonary arteries become narrow and tight, making it harder for blood to flow through the lungs. This in turn makes the heart work harder to pump blood through the lungs, making it harder for you to breathe. Over time, pulmonary hypertension can weaken and damage the heart muscle, specifically the right side of the heart. Pulmonary hypertension is a serious condition that can be life-threatening. What are the causes? This condition may be caused by different medical conditions. It can be categorized by cause into five groups: ??? Group 1: Pulmonary hypertension that is caused by abnormal growth of small blood vessels in the lungs (pulmonary arterial hypertension). The abnormal blood vessel growth may have no known cause, ntahan may be: ??? Passed from parent to child (hereditary). ??? Caused by another disease, such as a connective tissue disease (including lupus or scleroderma),congenital heart disease, liver disease, or HIV. ??? Caused by certain medicines or poisons (toxins). ??? Group 2: Pulmonary hypertension that is caused by weakness of the left chamber of the heart (left ventricle) or heart valve disease. ??? Group 3: Pulmonary hypertension that is caused by lung disease or low oxygen levels. Causes in this group include: ??? Emphysema or chronic obstructive pulmonary disease (COPD). ??? Untreated sleep apnea. ??? Pulmonary fibrosis. ??? Long-term exposure to high altitudes in certain people who may already be at higher risk for pulmonary hypertension. ??? Group 4: Pulmonary hypertension that is caused by blood clots in the lungs (pulmonary emboli). ??? Group 5: Other causes of pulmonary hypertension, such as sickle cell anemia, sarcoidosis, tumorspressing on the pulmonary arteries, and various other diseases. What are the signs or symptoms? Symptoms of this condition include: ??? Shortness of breath. You may notice shortness of breath with: ??? Activity, such as walking. ??? Minimal activity, such as getting dressed. ??? No activity, like when you are sitting still. ??? A cough. Sometimes, bloody mucus from the lungs may be coughed up (hemoptysis). ??? Tiredness and fatigue. ??? Dizziness, lightheadedness, or fainting, especially with physical activity. ??? Rapid heartbeat, or feeling your heart flutter or skip a beat (palpitations). ??? Veins in the neck getting larger. ??? Swelling of the lower legs, abdomen, or both. ??? Bluish color of the lips and fingertips. ??? Chest pain or tightness in the chest. ??? Abdominal pain, especially in the upper abdomen. How is this diagnosed? This condition may be diagnosed based on one or more of the following tests: ??? Chest X-ray. ??? Blood tests. ??? CT scan. ??? Pulmonary function test. This test measures how much air your lungs can hold. It also tests how well air moves in and out of your lungs. ??? 6-minute walk test. This tests how severe your condition is in relation to your activity levels. ??? Electrocardiogram (ECG). This test records the electrical impulses of the heart. ??? Echocardiogram. This test uses sound waves (ultrasound) to produce an image of the heart. ??? Cardiac catheterization. This is a procedure in which a thin tube (catheter) is passed into the pulmonary artery and used to test the pressure in your pulmonary artery and the right side of your heart. ??? Lung biopsy. This involves having a procedure to remove a small sample of lung tissue for testing. This may help determine an underlying cause of your pulmonary hypertension. How is this treated? There is no cure for this condition, but treatment can help to relieve symptoms and slow the progress of the condition. Treatment may include: ??? Cardiac rehabilitation. This is a treatment program that includes exercise training, education, and counseling to help you get stronger and return to an active lifestyle. ??? Oxygen therapy. ??? Medicines that: ??? Lower blood pressure. ??? Relax (dilate) the pulmonary blood vessels. ??? Help the heart beat more efficiently and pump more blood. ??? Help the body get rid of extra fluid (diuretics). ??? Thin the blood in order to prevent blood clots in the lungs. ??? Lung surgery to relieve pressure on the heart, for severe cases that do not respond to medical treatment. ??? Heart-lung transplant, or lung transplant. This may be done in very severe cases. Follow these instructions at home: Eating and drinking ??? Eat a healthy diet that includes plenty of fresh fruits and vegetables, whole grains, and beans. ??? Limit your salt (sodium) intake to less than 2,300 mg a day. Lifestyle ??? Do not use any products that contain nicotine or tobacco, such as cigarettes and e-cigarettes. If you need help quitting, ask your health care provider. ??? Avoid secondhand smoke. Activity ??? Get plenty of rest. ??? Exercise as directed. Talk with your health care provider about what type of exercise is safe for you. ??? Avoid hot tubs and saunas. ??? Avoid high altitudes. General instructions ??? Take kiwo-ogr-ejwkaed and prescription medicines only as told by your health care provider. Do not change or stop medicines without checking with your health care provider. ??? Stay up to date on your vaccines, especially yearly flu (influenza) and pneumonia vaccines. ??? If you are a woman of child-bearing age, avoid becoming . Talk with your health care provider about control. ??? Consider ways to get support for anxiety and stress of living with pulmonary hypertension. Talk with your health care provider about support groups and online resources. ??? Use oxygen therapy at home as directed. ??? Keep track of your weight. Weight gain could be a sign that your condition is getting worse. ??? Keep all follow-up visits as told by your health care provider. This is important. Contact a health care provider if: ??? Your cough gets worse. ??? You have more shortness of breath than usual, or you start to have trouble doing activities thatyou could do before. ??? You need to use medicines or oxygen more frequently or in higher dosages than usual. Get help right away if: ??? You have severe shortness of breath. ??? You have chest pain or pressure. ??? You cough up blood. ??? You have swelling of your feet or legs that gets worse. ??? You have rapid weight gain over a period of 1???2 days. ??? Your medicines or oxygen do not provide relief. Summary ??? Pulmonary hypertension is a chronic condition in which there is high blood pressure in the arteries in the lungs (pulmonary arteries). ??? Pulmonary hypertension is a serious condition that can be life-threatening. It can be caused by a variety of illnesses. ??? Treatment may involve taking medicines and using oxygen therapy. Severe cases may require surgery or a transplant. This information is not intended to replace advice given to you by your health care provider. Make sure you discuss any questions you have with your health care provider. Document Released: 06/14/2008 Document Revised: 07/31/2018 Document Reviewed: 11/11/2017 [employer] Patient Education ?? 2020 [employer]. 11/17/2020 16:08:30How the Heart WorksHow the Heart Works The heart is a hollow muscular organ. The heart's job is to pump blood through the entire body. Thisjob is important because blood carries oxygen and nutrients from the foods you eat to all the cells of your body. Blood also carries waste products away from your cells. What does the heart look like? The heart is made up of four chambers. The upper chambers are called the right atrium and left atrium, and the lower chambers are called the right ventricle and left ventricle. The heart has several valves that separate the upper and lower chambers from each other and that separate the lower chambers of the heart from pathways that lead away from the heart. The valves include: ??? The tricuspid valve. This valve separates the right atrium from the right ventricle. ??? The mitral valve. This valve separates the left atrium from the left ventricle. ??? The pulmonary valve. This valve separates the right ventricle from a pathway that leads to the lungs. ??? The aortic valve. This valve separates the left ventricle from a pathway that leads to the rest of the body. How does blood travel through the heart? Blood that has traveled through the body enters the heart at the right atrium. Then the blood travels in this sequence: 1. Blood is pumped from the right atrium into the right ventricle. 2. Blood is pumped out of the heart into the lungs, where it picks up oxygen. 3. Blood re-enters the heart at the left atrium. 4. Blood is pumped into the left ventricle. 5. Blood is pumped out of the heart to the rest of the body. How does the heart beat? The heart beats when all the chambers of the heart squeeze (contract). The process starts when bloodcollects in the upper chambers of the heart. Once the chambers are full, a group of cells called thesinoatrial node sends out an electrical signal that makes the upper chambers contract. When the chambers contract, they push the blood through the tricuspid and mitral valves into the lower chambers ofthe heart. Once the lower chambers have filled with blood, an electrical signal causes these chambers to contract. This pushes blood through the pulmonary and aortic valves and out of the heart. How does activity affect the heart? The heart beats faster and works harder when you are active. It beats more slowly and works less hard when you are resting. Your brain sends signals to the heart to meet the needs of your body. This information is not intended to replace advice given to you by your health care provider. Make sure you discuss any questions you have with your health care provider. Document Released: 07/23/2005 Document Revised: 12/13/2019 Document Reviewed: 07/23/2017 [employer] Patient Education ?? 2020 [employer] 11/17/2020 16:08:30Heart Failure Eating PlanHeart Failure Eating Plan Heart failure, also called congestive heart failure, occurs when your heart does not pump blood wellenough to meet your body's needs for oxygen-rich blood. Heart failure is a long-term (chronic) condition. Living with heart failure can be challenging. However, following your health care provider's instructions about a healthy lifestyle and working with a diet and payment specialist (dietitian) to choose the right foods may help to improve your symptoms. What are tips for following this plan? Reading food labels ??? Check food labels for the amount of sodium per serving. Choose foods that have less than 140 mg (milligrams) of sodium in each serving. ??? Check food labels for the number of calories per serving. This is important if you need to limityour daily calorie intake to lose weight. ??? Check food labels for the serving size. If you eat more than one serving, you will be eating more sodium and calories than what is listed on the label. ??? Look for foods that are labeled as sodium-free, very low sodium, or low sodium. ??? Foods labeled as reduced sodium or lightly salted may still have more sodium than what is recommended for you. Cooking ??? Avoid adding salt when cooking. Ask your health care provider or dietitian before using salt substitutes. ??? Season food with salt-free seasonings, spices, or herbs. Check the label of seasoning mixes to make sure they do not contain salt. ??? Cook with heart-healthy oils, such as olive, canola, soybean, or sunflower oil. ??? Do not barr foods. Cook foods using low-fat methods, such as baking, boiling, grilling, and broiling. ??? Limit unhealthy fats when cooking by: ??? Removing the skin from poultry, such as chicken. ??? Removing all visible fats from meats. ??? Skimming the fat off from stews, soups, and gravies before serving them. Meal planning ??? Limit your intake of: ??? Processed, canned, or pre-packaged foods. ??? Foods that are high in trans fat, such as fried foods. ??? Sweets, desserts, sugary drinks, and other foods with added sugar. ??? Full-fat dairy products, such as whole milk. ??? Eat a balanced diet that includes: ??? 4???5 servings of fruit each day and 4???5 servings of vegetables each day. At each meal, try tofill half of your plate with fruits and vegetables. ??? Up to 6???8 servings of whole grains each day. ??? Up to 2 servings of lean meat, poultry, or fish each day. One serving of meat is equal to 3 oz. This is about the same size as a deck of cards. ??? 2 servings of low-fat dairy each day. ??? Heart-healthy fats. Healthy fats called omega-3 fatty acids are found in foods such as flaxseed and cold-water fish like sardines, salmon, and mackerel. ??? Aim to eat 25???35 g (grams) of fiber a day. Foods that are high in fiber include apples, broccoli, carrots, beans, peas, and whole grains. ??? Do not add salt or condiments that contain salt (such as soy sauce) to foods before eating. ??? When eating at a restaurant, ask that your food be prepared with less salt or no salt, if possible. ??? Try to eat 2 or more vegetarian meals each week. ??? Eat more home-cooked food and eat less restaurant, buffet, and fast food. General information ??? Do not eat more than 2,300 mg of salt (sodium) a day. The amount of sodium that is recommended for you may be lower, depending on your condition. ??? Maintain a healthy body weight as directed. Ask your health care provider what a healthy weight is for you. ??? Check your weight every day. ??? Work with your health care provider and dietitian to make a plan that is right for you to lose weight or maintain your current weight. ??? Limit how much fluid you drink. Ask your health care provider or dietitian how much fluid you can have each day. ??? Limit or avoid alcohol as told by your health care provider or dietitian. Recommended foods The items listed may not be a complete list. Talk with your dietitian about what dietary choices arebest for you. Fruits All fresh, frozen, and canned fruits. Dried fruits, such as raisins, prunes, and cranberries. Vegetables All fresh vegetables. Vegetables that are frozen without sauce or added salt. Low-sodium or sodium-free canned vegetables. Grains Bread with less than 80 mg of sodium per slice. Whole-wheat pasta, quinoa, and brown rice. Oats and oatmeal. Barley. Millet. Grits and cream of wheat. Whole- grain and whole-wheat cold cereal. Meats and other protein foods Lean cuts of meat. Skinless chicken and turkey. Fish with high omega-3 fatty acids, such as salmon, sardines, and other cold-water fishes. Eggs. Dried beans, peas, and edamame. Unsalted nuts and nut butters. Dairy Low-fat or nonfat (skim) milk and dried milk. Rice milk, soy milk, and almond milk. Low-fat or nonfat yogurt. Small amounts of reduced-sodium block cheese. Low-sodium cottage cheese. Fats and oils Morse, canola, soybean, flaxseed, or sunflower oil. Avocado. Sweets and desserts Apple sauce. Granola bars. Sugar-free pudding and gelatin. Frozen fruit bars. Seasoning and other foods Fresh and dried herbs. Lemon or koi juice. Vinegar. Low-sodium ketchup. Salt- free marinades, salad dressings, sauces, and seasonings. The items listed above may not be a complete list of foods and beverages you can eat. Contact a dietitian for more information. Foods to avoid The items listed may not be a complete list. Talk with your dietitian about what dietary choices arebest for you. Fruits Fruits that are dried with sodium-containing preservatives. Vegetables Canned vegetables. Frozen vegetables with sauce or seasonings. Creamed vegetables. [place] fries. Onion rings. Pickled vegetables and sauerkraut. Grains Bread with more than 80 mg of sodium per slice. Hot or cold cereal with more than 140 mg sodium per serving. Salted pretzels and crackers. Pre-packaged breadcrumbs. Bagels, croissants, and biscuits. Meats and other protein foods Ribs and chicken wings. Matos, ham, pepperoni, bologna, salami, and packaged luncheon meats. Hot dogs, bratwurst, and sausage. Canned meat. Smoked meat and fish. Salted nuts and seeds. Dairy Whole milk, [id number], and cream. Buttermilk. Processed cheese, cheese spreads, and cheese curds. Regular cottage cheese. Feta cheese. Shredded cheese. String cheese. Fats and oils Butter, lard, shortening, ghee, and matos fat. Canned and packaged gravies. Seasoning and other foods Onion salt, garlic salt, table salt, and sea salt. Marinades. Regular salad dressings. Relishes, pickles, and olives. Meat flavorings and tenderizers, and bouillon cubes. Horseradish, ketchup, and mustard. Worcestershire sauce. Teriyaki sauce, soy sauce (including reduced sodium). Hot sauce and Tabasco sauce. Steak sauce, fish sauce, oyster sauce, and cocktail sauce. Taco seasonings. Barbecue sauce. Tartar sauce. The items listed above may not be a complete list of foods and beverages you should avoid. Contact adietitian for more information. Summary ??? A heart failure eating plan includes changes that limit your intake of sodium and unhealthy fat,and it may help you lose weight or maintain a healthy weight. Your health care provider may also recommend limiting how much fluid you drink. ??? Most people with heart failure should eat no more than 2,300 mg of salt (sodium) a day. The amount of sodium that is recommended for you may be lower, depending on your condition. ??? Contact your health care provider or dietitian before making any major changes to your diet. This information is not intended to replace advice given to you by your health care provider. Make sure you discuss any questions you have with your health care provider. Document Released: 01/02/2018 Document Revised: 10/14/2019 Document Reviewed: 01/02/2018 [employer] Patient Education ?? 2019 [employer] 11/17/2020 16:08:30Form - Daily Weight RecordDaily Weight Record It is important to weigh yourself daily. To do this: ??? Make sure you use a reliable scale. Use the same scale each day. ??? Keep this daily weight chart near your scale. ??? Weigh yourself each morning at the same time. ??? Before weighing yourself: ??? Take off your shoes. ??? Make sure you are wearing the same amount of clothing each day. ??? Write down your weight in the spaces on the form. ??? Compare today's weight to yesterday's weight. ??? Bring this form with you to your follow-up visits with your health care provider. Call your health care provider if you have concerns about your weight, including rapid weight gain or loss. Date: Weight: Date: Weight: Date: Weight: Date: Weight: Date: Weight: Date: Weight: Date: Weight: Date: Weight: Date: Weight: Date: Weight: Date: Weight: Date: Weight: Date: Weight: Date: Weight: Date: Weight: Date: Weight: Date: Weight: Date: Weight: Date: Weight: Date: Weight: Date: Weight: Date: Weight: Date: Weight: Date: Weight: Date: Weight: Date: Weight: Date: Weight: Date: Weight: Date: Weight: Date: Weight: Date: Weight: Date: Weight: Date: Weight: Date: Weight: Date: Weight: Date: Weight: Date: Weight: Date: Weight: Date: Weight: Date: Weight: Date: Weight: Date: Weight: Date: Weight: Date: Weight: Date: Weight: Date: Weight: Date: Weight: Date: Weight: Date: Weight: Date: Weight: This information is not intended to replace advice given to you by your health care provider. Make sure you discuss any questions you have with your health care provider. Document Released: 10/30/2007 Document Revised: 08/17/2018 Document Reviewed: 08/17/2018 [employer] Patient Education ?? 2020 [employer] 11/17/2020 14:27:11Living With Heart FailureLiving With Heart Failure Heart failure is a long-term (chronic) condition in which the heart cannot pump enough blood throughthe body. When this happens, parts of the body do not get the blood and oxygen they need. There is no cure for heart failure at this time, so it is important for you to take good care of yourself and follow the treatment plan set by your health care provider. If you are living with heart failure, there are ways to help you manage the disease. Follow these instructions at home: Living with heart failure requires you to make changes in your life. Your health care team will teach you about the changes you need to make in order to relieve your symptoms and lower your risk of going to the hospital. Follow the treatment plan as set by your health care provider. Medicines Medicines are important in reducing your heart's workload, slowing the progression of heart failure,and improving your symptoms. ??? Take [id number] and prescription medicines only as told by your health care provider. ??? Do not stop taking your medicine unless your health care provider tells you to do that. ??? Do not skip any dose of your medicine. ??? Refill prescriptions before you run out of medicine. You need your medicines every day. Eating and drinking ??? Eat heart-healthy foods. Talk with a dietitian to make an eating plan that is right for you. ??? If directed by your health care provider: ??? Limit salt (sodium). Lowering your sodium intake may reduce symptoms of heart failure. Ask a dietitian to recommend heart-healthy seasonings. ??? Limit your fluid intake. Fluid restriction may reduce symptoms of heart failure. ??? Use low-fat cooking methods instead of frying. Low-fat methods include roasting, grilling, broiling, baking, poaching, steaming, and stir-frying. ??? Choose foods that contain no trans fat and are low in saturated fat and cholesterol. Healthy choices include fresh or frozen fruits and vegetables, fish, lean meats, legumes, fat-free or low-fat dairy products, and whole-grain or high-fiber foods. ??? Limit alcohol intake to no more than 1 drink a day for non women and 2 drinks a day for men. One drink equals 12 oz of beer, 5 oz of wine, or 1?? oz of hard liquor. ??? Drinking more than that is harmful to your heart. Tell your health care provider if you drink alcohol several times a week. ??? Talk with your health care provider about whether any level of alcohol use is safe for you. Activity ??? Ask your health care provider about attending cardiac rehabilitation. These programs include aerobic physical activity, which provides many benefits for your heart. ??? If no cardiac rehabilitation program is available, ask your health care provider what aerobic exercises are safe for you to do. Lifestyle Make the lifestyle changes recommended by your health care provider. In general: ??? Lose weight if your health care provider tells you to do that. Weight loss may reduce symptoms of heart failure. ??? Do not use any products that contain nicotine or tobacco, such as cigarettes or e-cigarettes. Ifyou need help quitting, ask your health care provider. ??? Do not use street (illegal) drugs. ??? Return to your normal activities as told by your health care provider. Ask your health care provider what activities are safe for you. General instructions ??? Make sure you weigh yourself every day to track your weight. Rapid weight gain may indicate an increase in fluid in your body and may increase the workload of your heart. ??? Weigh yourself every morning. Do this after you urinate but before you eat breakfast. ??? Wear the same type of clothing, without shoes, each time you weigh yourself. ??? Weigh yourself on the same scale and in the same spot each time. ??? Living with chronic heart failure often leads to emotions such as fear, stress, anxiety, and depression. If you feel any of these emotions and need help coping, contact your health care provider. Other ways to get help include: ??? Talking to friends and family members about your condition. They can give you support and guidance. Explain your symptoms to them and, if comfortable, invite them to attend appointments or rehabilitation with you. ??? Joining a support group for people with chronic heart failure. Talking with other people who have the same symptoms may give you new ways of coping with your disease and your emotions. ??? Stay up to date with your shots (vaccines). Staying current on pneumococcal and influenza vaccines is especially important in preventing germs from attacking your airways (respiratory infections). ??? Keep all follow-up visits as told by your health care provider. This is important. How to recognize changes in your condition You and your family members need to know what changes to watch for in your condition. Watch for the following changes and report them to your health care provider: ??? Sudden weight gain. Ask your health care provider what amount of weight gain to report. ??? Shortness of breath: ??? Feeling short of breath while at rest, with no exercise or activity that required great effort. ??? Feeling breathless with activity. ??? Swelling of your lower legs or ankles. ??? Difficulty sleeping: ??? You wake up feeling short of breath. ??? You have to use more pillows to raise your head in order to sleep. ??? Frequent, dry, hacking cough. ??? Loss of appetite. ??? Feeling more tired all the time. ??? Depression or feelings of sadness or hopelessness. ??? Bloating in the stomach. Where to find more information ??? Local support groups. Ask your health care provider about groups near you. ??? The [place] [employer]: www.heart.org Contact a health care provider if: ??? You have a rapid weight gain. ??? You have increasing shortness of breath that is unusual for you. ??? You are unable to participate in your usual physical activities. ??? You tire easily. ??? You cough more than normal, especially with physical activity. ??? You have any swelling or more swelling in areas such as your hands, feet, ankles, or abdomen. ??? You feel like your heart is beating quickly (palpitations). ??? You become dizzy or light-headed when you stand up. Get help right away if: ??? You have difficulty breathing. ??? You notice or your family notices a change in your awareness, such as having trouble staying awake or having difficulty with concentration. ??? You have pain or discomfort in your chest. ??? You have an episode of fainting (syncope). Summary ??? There is no cure for heart failure, so it is important for you to take good care of yourself andfollow the treatment plan set by your health care provider. ??? Medicines are important in reducing your heart's workload, slowing the progression of heart failure, and improving your symptoms. ??? Living with chronic heart failure often leads to emotions such as fear, stress, anxiety, and depression. If you are feeling any of these emotions and need help coping, contact your health care provider. This information is not intended to replace advice given to you by your health care provider. Make sure you discuss any questions you have with your health care provider. Document Released: 12/31/2017 Document Revised: 07/31/2018 Document Reviewed: 12/31/2017 [employer] Patient Education ?? 2020 [employer] Follow Up Care11/13/2020 19:54:26With:Pulmonology/[facility] [place] Address:Unknown When: Unknown Comments:Office will call to schedule follow up. phone: [phone]:[place] Address:Unknown When: Unknown Comments:Service to call you and schedule in home appointmentPH# [phone] With:Cardiology/[facility] [place] Address:Unknown When: Unknown Comments:Office will call to schedule follow upPH# [phone]:NAM BAKER Address: [facility] [address] [place], [place] [address] Business (1) When:11/21/2020 10:30:00 Comments:This is your follow up appointment after hospitalization @ the PCP office
[2021-03-30 15:36] LABS: Abs Immature Grans 0.01 10^3/uL (0.0-0.06); Absolute Basophil Count 0.04 10^3/uL (0.0-0.2); Absolute Eosinophil Count 0.41 10^3/uL (0.0-0.7); Absolute Lymphocyte Count 1.04 10^3/uL (1.2-3.4); Absolute Monocyte Count 0.72 10^3/uL (0.1-0.8); Absolute Neutrophil Count 3.48 10^3/uL (1.2-6.7); Basophils % 0.7; Eosinophils % 7.2; HCT 50.9 % (40.0-50.0); HGB 16.6 g/dL (13.5-17.5); Immature Grans % 0.2; Lymphocytes % 18.2; MCH 33.3 pg (27.0-33.0); MCHC 32.6 % (32.0-36.0); MCV 102.2 fL (80-95); MPV 9.6 fL (8.0-11.0); Monocytes % 12.6; Neutrophils % 61.1; Nucleated RBC 0 %; Platelet Count 170 10^3/uL (130-400); RBC 4.98 10^6/uL (4.36-5.78); RDW 13.1 % (11.8-14.1); RDW-SD 50.1 fL
[2021-03-30 15:37] LABS: Bilirubin Negative (Negative); Blood Negative (Negative); Clarity Clear (Clear); Glucose Negative (Negative); Ketones 15 mg/dL (Negative); Leukocyte Esterase Negative (Negative); Nitrite Negative (Negative)
[2021-03-30 16:38] LABS: Bacteria Negative HPF (Negative); C & S Indicated? No; Casts Negative LPF (Negative); Crystals Negative HPF (Negative); Epithelial Cells Negative HPF (Negative); Mucus Negative (Negative); Other Cells Negative (Negative); RBC 0-2 HPF (0-2); WBC 0-2 HPF (0-5)
[2021-03-30 16:53] LABS: ALT 26 U/L (16-63); AST 30 U/L (15-37); Albumin 3.9 g/dL (3.4-5.0); Alkaline Phosphatase 98 U/L (46-116); Anion Gap 4.6 mmol/L (3-11); BUN 11 mg/dL (7-18); Bilirubin, Direct 0.3 mg/dL (0.0-0.2); Bilirubin, Total 0.5 mg/dL (0.2-1.0); CO2 35.4 mmol/L (21.0-32.0); CREATININE 0.7 mg/dL (0.70-1.30); Calcium 8.8 mg/dL (8.5-10.1); Chloride 98 mmol/L (98-107); Glucose 103 mg/dL (74-106); Potassium 3.9 mmol/L (3.5-5.1); Sodium 138 mmol/L (136-145); Total Protein 7.4 g/dL (6.4-8.2)
== END 2021-03-30 11:48 | disposition home or self-care (01) ==
LOC: LBO 11:50
PROVIDERS: Visit Provider Dermatology
DX: L30.9 Dermatitis, unspecified (principal)
CPT/HCPCS: 36415; 80048; 80076; 81003; 81015; 85025

== ENCOUNTER 2023-01-12 07:31 | Emergency (ER) | payer MEDICARE, SELFPAY ==
[2023-01-12] VITALS (46 sets, daily range): BP systolic 88–143; BP diastolic 59–102; PULSE 88–108; RESP 12–27; TEMP 36.9; O2SAT 95
--- NOTE | 2023-01-12 07:30 | RT.EKG_ITS ---
APPROVED REPORT Exam: Resting ECG Reason for Exam: sob Patient Location: E HR:101 bpm ECG Measurements Heart Rate 101 AXIS OK 238 P 35 QRSd 101 QRS 21 QT 343 T 63 QTc 446 Conclusion Sinus tachycardia...rate> 99 Atrial premature complex...SV complex w/ short R-R interval Prolonged OK interval...OK >215, V-rate 91-120 Sinus tachycardia at a rate of 101 with first-degree AV block and a OK interval of [address] seg ment elevations. T wave flattening in aVL. No prior for comparison.
--- NOTE | 2023-01-12 08:03 | W.ED.GENAD ---
Discharge Plan Discharge Details Chief Complaint: SOB Clinical Impression: Macrocytosis without anemia, Shortness of breath, First degree AV block Primary Care Provider: Angelika,Local ED Provider: Darwin Miranda Home Meds and New Rx's Prescriptions: Continued diclofenac sodium [Voltaren Arthritis Pain] 1 % Gel 1 applic TOPICAL DIRECTED levothyroxine 25 mcg tablet 25 mcg PO DAILY Patient Comments: TAKE 1 TABLET BY MOUTH EVERY DAY spironolactone 25 mg tablet 25 mg PO BID Patient Comments: TAKE 1 TABLET BY MOUTH TWICE A DAY furosemide 40 mg tablet 40 mg PO DAILY Patient Comments: TAKE 1 TABLET BY MOUTH EVERY DAY ibuprofen 200 mg Tablet 600 mg PO PRN PRN fexofenadine 180 mg Tablet 180 mg PO PRN PRN Nasal [place]hen Bottle Bottle 1 ea MISCELLANEOUS DIRECTED diphenhydramine HCl [Benadryl] 25 mg Capsule 25 mg PO PRN PRN tadalafil [Cialis] 20 mg Tablet 10 mg PO DIRECTED PRN Discharge Instructions Instructions: Dyspnea (ED) Additional Instructions: You were seen in the emergency department for your shortness of breath. Your CAT scan showed no sign of a pneumonia nor any signs of a blood clot in your lung. As we discussed, if you develop worsening swelling in her hands any swelling in your legs or any worsening shortness of breath please return to the emergency department. Please otherwise follow-up with your primary care provider later this week. Please also return if you develop chest pain. Discharge Data Discharge Date/Time-TO BE ENTERED AT DEPARTURE: 01/12/23 12:48 Medical Decision Making This is an overall well-appearing normothermic and mildly tachycardic 67-year-old male with shortness of breath concerning for multiple etiologies. Patient does not have any juvencio chest pain however given his shortness of breath will obtain a troponin to ensure that his shortness of breath is not an anginal equivalent. He has had no productive cough nor fevers to suggest pneumonia however will obtain a chest x-ray. 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 He has equal breath sounds and so I am not concern for pneumothorax. No sick contacts to suggest COVID and no sore throat. Will defer respiratory viral swab. No abdominal pain to suggest intra-abdominal infection. No chest pain to suggest aortic dissection. Not hypotensive nor does he have any significant pericardial effusion so doubt tamponade. Not appear markedly fluid overloaded on bedside ultrasound and he denies any weight gain so we will defer diuresis at this point time however check a proBNP. Patient is low risk for PE however I sent a D-dimer given his tachycardia and shortness of breath. Patient does have a history of reactive airway disease however he is not wheezing and has no prolonged expiratory phase to suggest acute exacerbation so we will defer steroids and nebulization treatment at this point time. 9 AM CBC lacks leukocytosis anemia and thrombocytopenia. Patient does have a macrocytosis without anemia. 9:20 AM Very mild hyponatremia and hypokalemia. Mildly elevated bicarb level. No anion gap. Reassuring normal creatinine. Very mild hypomagnesemia. Negative normal troponin. proBNP within normal limits. Patient is no longer tachycardic however will treat with cc of fluid as his heart rate has been slightly elevated. 12 PM CTA negative for PE and without signs of pneumonia. Tachycardia resolved in the ED. Patient was tolerating p.o. I advised him to return for any worsening shortness of breath any leg swelling or any significant cough or fevers. Chronic conditions affecting the care of the patient: Heart failure preserved ejection fraction History obtained from an outside historian: N/A External record review: [facility] [place] EMR Diagnostic interpretations performed by me: [Per my independent interpretation chest x-ray shows:] Chronic appearing marked asymmetric elevation of left hemidiaphragm. No acute infiltrate. [Per my independent interpretation EKG shows:] Sinus tachycardia at a rate of 101 with first-degree AV block and a OK interval of [address] segment elevations. T wave flattening in aVL. No prior for comparison. Medications: IV fluids Social determinants of health affecting disposition: N/A Management discussed with: N/A Treatment/interventions considered: Hospitalization but deferred and elected to pursue an empiric trial of expectant outpatient management. Response to therapies provided: Cement improved following fluids. HPI General Date/Time Provider Initiated Documentation: 01/12/23 08:03. HPI Narrative: This is a 67-year-old male with a history of failure with preserved ejection fraction and reactive airway disease in the emergency department in setting of shortness of breath and lightheadedness. Patient reports that he woke this morning at 5 AM with a cramp in his left leg. This resolved however he woke again at 6 AM and felt short of breath. He takes daily diuretics and occasionally increases his dose if he is feeling more short of breath or notice any weight gain. He did not recently change his diuretic dosing. He denies any recent changes in his weight and he denies any dietary excursions. He has not changed his dose of diuretics recently. He does note that he has had some hand swelling recently. He is a daily alcohol drinker though he denies history of withdrawal. He denies routine tobacco. He also denies cough fever nausea vomiting abdominal pain chest pain dysuria and frequency. He was hospitalized for CHF exacerbation and 2020. He has had no recent sick contacts nor any rhinorrhea. He has not taken any recent falls. Related Data Home Medications Medication Instructions Recorded Confirmed diclofenac sodium 1 % topical gel 1 applic topical DIRECTED 01/12/23 01/12/23 (Voltaren Arthritis Pain) diphenhydramine HCl 25 mg capsule 25 mg PO PRN PRN 01/12/23 01/12/23 (Benadryl) empty container (Nasal [place]mechen 1 ea miscellaneous DIRECTED 01/12/23 01/12/23 Bottle) fexofenadine 180 mg tablet 180 mg PO PRN PRN 01/12/23 01/12/23 furosemide 40 mg tablet 40 mg PO DAILY 01/12/23 01/12/23 ibuprofen 200 mg tablet 600 mg PO PRN PRN 01/12/23 01/12/23 levothyroxine 25 mcg tablet 25 mcg PO DAILY 01/12/23 01/12/23 spironolactone 25 mg tablet 25 mg PO BID 01/12/23 01/12/23 tadalafil 20 mg tablet (Cialis) 10 mg PO DIRECTED PRN 01/12/23 01/12/23 Allergies Allergy/AdvReac Type Severity Reaction Status Date / Time No Known Allergies Allergy Unverified 01/12/23 07:47 General Stated Complaint: SOB MONSE: 2 PFSH All Active Problems (Updated 01/12/23 @ 12:01 by Darwin Miranda MD) Macrocytosis without anemia (Acute) Shortness of breath (Acute) First degree AV block (Acute) Social History Smoking/Tobacco Use Status: Former Tobacco Use Smoking risk assessment performed?: Yes Alcohol Intake: current Alcohol Intake frequency: 3 or more drinks per day Drug use: Occasionally Substance use type: marijuana Do you feel safe at home: Yes Do you feel safe in your relationship?: Yes Exam Narrative Exam Narrative: General: Well-appearing in no acute distress speaking in complete sentences. Head: Normocephalic, atraumatic. Eye: Pupils equal, round reactive to light. Extraocular eye movements intact. No conjunctival injection. No scleral icterus. Ear, nose, mouth, throat: Grossly normal inspection. Normal voice, handling secretions normally. Neck: Trachea midline. Cardiovascular: Well-perfused distal extremities. Regular rate and rhythm. No murmurs. Respiratory: Nonlabored respiration. Clear lungs bilaterally. No prolonged expiratory phase. No wheezes. Gastrointestinal: Nondistended abdomen. Musculoskeletal: No significant lower extremity pitting edema. Moving all 4 extremities spontaneously. Skin: Normal for age and race, grossly normal temperature and turgor. No acute rash. Neurologic: Alert and appropriate, no apparent acute deficits. Psychiatric: Mood and manner are appropriate. Grooming and personal hygiene are appropriate. Course Vital Signs Vital signs: Vital Signs Temperature 36.9 C 01/12/23 07:37 Pulse 104 H 01/12/23 07:37 Respiratory Rate 17 01/12/23 07:37 Blood Pressure 124/79 01/12/23 07:37 Pulse Oximetry 95 01/12/23 07:37 Temperature 36.9 C 01/12/23 07:37 Temperature Source Oral 01/12/23 07:37 Pulse 104 H 01/12/23 07:37 Respiratory Rate 17 01/12/23 07:37 Blood Pressure 124/79 01/12/23 07:37 Pulse Oximetry 95 01/12/23 07:37 Oxygen Delivery Method Room Air 01/12/23 07:37 Oxygen Flow Rate 0 01/12/23 07:37 Pain Level 0 01/12/23 07:37 POCUS Exam (ED) Limited Cardiac Exam DATE OF EXAM: 01/12/23 TIME OF EXAM: 08:24 REASON FOR EXAM: Dyspnea VISUALIZED STRUCTURES: Left ventricle and LVOT VIEW OBTAINED: Parasternal long-axis and Subxiphoid DIFFERENTIAL DIAGNOSES: Good squeeze, no significant pericardial effusion. Could not tolerate apical four-chamber view. No significant B-lines bilateral lungs. Did not tolerate exam
--- NOTE | 2023-01-12 08:15 | DI.RAD_ITS ---
Exam(s) XR CHEST 2V PA LATERAL EXAM: XR CHEST 2V PA LATERAL CLINICAL HISTORY: sob TECHNIQUE: 2D digital imaging was performed. COMPARISON: CT CT CHEST PE CTA from 01/12/2023 FINDINGS: Elevated left diaphragm. Minimal adjacent scarring or atelectasis. HEART: Mainly obscured by elevated left diaphragm. Aorta: Not dilated. PULMONARY VASCULATURE: Normal. LUNGS: Right lung clear. PLEURAL SPACE: No pleural effusion or pneumothorax. BONE:No compression fractures. Syndesmophyte formation. IMPRESSION: Mild left basilar atelectasis. No acute abnormality. DATA REPOSITORY: RADIATION DOSE DELIVERED:
[2023-01-12 08:53] LABS: Abs Immature Grans 0.03 10^3/uL (0.0-0.06); Absolute Basophil Count 0.02 10^3/uL (0.0-0.2); Absolute Eosinophil Count 0.03 10^3/uL (0.0-0.7); Absolute Lymphocyte Count 0.66 10^3/uL (1.2-3.4); Absolute Monocyte Count 0.68 10^3/uL (0.1-0.8); Absolute Neutrophil Count 6.39 10^3/uL (1.2-6.7); Basophils % 0.3; Eosinophils % 0.4; HCT 42.5 % (40.0-50.0); HGB 14.9 g/dL (13.5-17.5); Immature Grans % 0.4; Lymphocytes % 8.5; MCH 33.8 pg (27.0-33.0); MCHC 35.1 % (32.0-36.0); MCV 96 fL (80-95); MPV 9.6 fL (8.0-11.0); Monocytes % 8.7; Neutrophils % 81.7; Platelet Count 239 10^3/uL (130-400); RBC 4.41 10^6/uL (4.36-5.78); RDW 11.7 % (11.8-14.1); RDW-SD 41.9 fL; WBC 7.81 10^3/uL (4.4-10.8)
--- NOTE | 2023-01-12 09:12 | DI.VRAD_ITS ---
PROCEDURE INFORMATION: Exam: XR Chest Exam date and time: 01/12/2023 8:56 AM Age: 67 years old Clinical indication: Shortness of breath TECHNIQUE: Imaging protocol: Radiologic exam of the chest. Views: 2 views. COMPARISON: No relevant prior studies available. FINDINGS: Lungs: Opacity in the left base may represent atelectasis or pneumonia.. Pleural spaces: There may be mild left pleural effusion . Heart/Mediastinum: Stable cardiac silhouette. Diaphragm: Elevated left hemidiaphragm Bones/joints: Unremarkable. IMPRESSION: 1. Opacity in the left base may represent atelectasis or pneumonia.. 2. There may be mild left pleural effusion . Dictated and Authenticated by: Clint Jean Baptiste MD. Ordering:SHAHRZAD Granados MD
[2023-01-12 09:15] LABS: Anion Gap 8.5 mmol/L (3-11); BUN 11 mg/dL (7-18); CO2 32.5 mmol/L (21.0-32.0); CREATININE 0.8 mg/dL (0.70-1.30); Calcium 9.2 mg/dL (8.5-10.1); Chloride 93 mmol/L (98-107); Glucose 105 mg/dL (74-106); Magnesium 1.7 mg/dL (1.8-2.4); NT-proBNP 64 pg/mL (<300); Potassium 3.4 mmol/L (3.5-5.1); Sodium 134 mmol/L (136-145); Troponin I < 50 ng/L (<or=60)
[2023-01-12 09:28] LABS: D-Dimer 1293 ng/mlFEU (<500)
--- NOTE | 2023-01-12 09:30 | DI.CT_ITS ---
Exam(s) CT CHEST PE CTA EXAM: CT CHEST PE CTA CLINICAL HISTORY: Shortness of breath positive dimer. TECHNIQUE: Imaging Protocol: Axial CT angiography was performed with multi-slice acquisition and mu lti-planar reconstructions as well as axial, coronal and sagittal MIP reconstructions. CONTRAST MATERIAL: Intravenous: Omnipaque 350 Contrast volume:100 ml COMPARISON: CR,XR XR CHEST 2V PA LATERAL from 01/12/2023 FINDINGS: Exam is mildly limited by motion artifact. Pulmonary Arteries: No evidence of filling defect to suggest pulmonary emboli. Tracheobronchial tree: Patent where visualized. Mediastinum and Teena: No dominant adenopathy or fluid collection. Pulmonary parenchyma: Atelectasis above the diaphragm no consolidation or dominant measurable mass. Pleura: No effusion or pneumothorax. Heart: The heart is mildly dilated. Mild coronary artery calcifications are seen. Aorta: Thoracic aorta non-dilated. No aneurysm. No dissection. Upper abdomen: Left diaphragm elevated. Bones: Thoracic kyphosis and syndesmophyte formation. No compression fracture. Soft tissues: Right gynecomastia. IMPRESSION: No evidence of pulmonary embolism or other acute abnormality. Elevated left diaphragm and adjacent a telectasis. Likely chronic.. RADIATION DOSE DELIVERED: 488.91mGy.cm Total DLP DATA REPOSITORY: All CT scans at this facility are submitted to the National Radiology Data Registry (NRDR) Dose Index Registry (DIR) with the [employer] (A[employer]). RADIATION OPTIMIZATION: All CT scans at this facility use at least one of these dose optimization te chniques: automated exposure control; mA and/or kV adjustment per patient size (includes targeted exa ms where dose is matched to clinical indication); or iterative reconstruction.
[2023-01-12] MEDS: Normal Saline - Diluent 50 ML VIAL IJ (10:26)
[2023-01-12] MEDS: Omnipaque 350 MG/ML 100 ML BTL IJ (10:28)
[2023-01-12] MEDS: Normal Saline Flush 10 ML SYR IVP (10:30)
--- NOTE | 2023-01-12 10:37 | DI.VRAD_ITS ---
PROCEDURE INFORMATION: Exam: CTA Chest With Contrast Exam date and time: 01/12/2023 10:17 AM Age: 67 years old Clinical indication: Other: Shortness of breath positive dimer TECHNIQUE: Imaging protocol: Computed tomographic angiography of the chest with contrast. 3D rendering (Not supervised by radiologist): MIP and/or 3D reconstructed images were created by the technologist. Contrast material: OMNIPAQUE 350; Contrast volume: 100 ml; Contrast route: INTRAVENOUS (IV); COMPARISON: CR XR CHEST 2V PA LATERAL 01/12/2023 8:56 AM FINDINGS: Mildly limited due to respiratory motion artifact Pulmonary arteries: No pulmonary emboli. Aorta: No aortic aneurysm. No aortic dissection. Lungs: Mild subsegmental atelectasis and elevated left hemidiaphragm. No consolidation. No masses. Pleural spaces: No pneumothorax. No pleural effusion. Heart: Mild cardiomegaly. No pericardial effusion. Lymph nodes: No enlarged lymph nodes. Bones/joints: No acute fracture. Soft tissues: Unremarkable. IMPRESSION: No pulmonary emboli observed Cardiomegaly Elevated left hemidiaphragm and mild subsegmental atelectasis Dictated and Authenticated by: Darrian Swenson MD. Ordering:SHAHRZAD Granados MD
[2023-01-12] MEDS: Normal Saline 500 ML IV (10:55)
--- NOTE | 2023-01-12 12:04 | NUR.NOTE ---
Nursing Note: Dr. Miranda wanted pt to have follow up here within a week for SOB. Pt stated to me that he wanted to follow up with his PCP from [place] and would set up the follow up himself and that he did not want to get a PCP here yet.
--- NOTE | 2023-01-12 12:31 | NUR.NOTE ---
Nursing Note: patient was getting dressed for discharge when he had an episode of diaphoresis and light headed ness. HR remained the same, BP slightly lower than average. Patient given water, MD BanguraGoddard to bedside. Episode of dizzyness passed after sitting at bedside and drinking water. Patient cleared by MD for discharge.
== END 2023-01-12 12:48 ==
PROVIDERS: Emergency Provider Emergency Medicine
DX: D75.89 Other specified diseases of blood and blood-forming organs (principal); R06.02 Shortness of breath; I44.0 Atrioventricular block, first degree; E83.42 Hypomagnesemia; R00.0 Tachycardia, unspecified; E87.6 Hypokalemia; I50.32 Chronic diastolic (congestive) heart failure; E87.1 Hypo-osmolality and hyponatremia
CPT/HCPCS: 36415; 71275; 80048; 93005; 93308; 96360; 99285; 71046; 83735; 83880; 84484; 85025; 85379; 93010; 99284; J3490